=== PATIENT | female | born 1985 | race Caucasian/White ===

== ENCOUNTER 2021-07-11 20:53 | Day surgery (SDC) | payer BC ==
[2021-07-11 21:17] VITALS: BMI 32.5
[2021-07-11 22:06] LABS: Fetal Membranes Rupture No Membranes Rupture (No Rupture)
[2021-07-11] MEDS ORDERED: hydrALAZINE 20 MG/ML VIAL SLOW IVP PRN (23:33)
== END 2021-07-11 23:45 | disposition home or self-care (01) ==
LOC: CSHLD/OP 20:53
PROVIDERS: ATTEND Obstetrics & Gynecology
DX: O47.1 False labor at or after 37 completed weeks of gestation (principal); O99.891 Other specified diseases and conditions complicating pregnancy; N89.8 Other specified noninflammatory disorders of vagina; O36.8130 Decreased fetal movements, third trimester, not applicable or unspecified; O32.1XX0 Maternal care for breech presentation, not applicable or unspecified; Z3A.38 38 weeks gestation of pregnancy
CPT/HCPCS: 76815; 84112; 99284

== ENCOUNTER 2021-07-15 00:10 | Inpatient (IN) | payer BC ==
[2021-07-14 08:01] LABS: SARS-CoV-2 PCR by NAA Not Detected (NotDetected)
[2021-07-15] MEDS ORDERED: Misoprostol 100 MCG TAB ONE (00:34)
[2021-07-15] MEDS ORDERED: Penicillin G Potassium 5 MILL.UNITS VIAL ONE (00:34)
[2021-07-15] MEDS: Misoprostol 100 MCG TAB VAG SCH ×2 (00:42→05:02)
[2021-07-15] MEDS ORDERED: Ibuprofen 800 MG TAB PO PRN (01:01)
[2021-07-15] MEDS ORDERED: Lidocaine 1% (PF) 30 ML VIAL SC PRN (01:01)
[2021-07-15] MEDS ORDERED: Methylergonovine 0.2 MG/ML VIAL IM PRN (01:01)
[2021-07-15] MEDS ORDERED: Misoprostol 200 MCG TAB PR PRN (01:01)
[2021-07-15] MEDS ORDERED: Butorphanol Tartrate 1 MG/ML VIAL SLOW IVP PRN (01:01)
[2021-07-15] MEDS ORDERED: Promethazine HCl 25 MG/ML VIAL IM PRN ×2 (01:01→11:50)
[2021-07-15] MEDS ORDERED: hydrALAZINE 20 MG/ML VIAL SLOW IVP PRN ×2 (01:01→16:31)
[2021-07-15] MEDS ORDERED: Ondansetron PF 4 MG/2 ML Vial IVP PRN ×2 (01:01→11:50)
[2021-07-15] MEDS ORDERED: Acetaminophen 500 MG TAB PO PRN (01:01)
[2021-07-15] MEDS ORDERED: Carboprost 250 MCG/ML AMP IM PRN (01:01)
[2021-07-15] MEDS ORDERED: Lactated Ringer's 1,000 ML IV SCH (01:15)
[2021-07-15] MEDS ORDERED: NS w/ Oxytocin 30 units 500 ML IV SCH (01:15)
[2021-07-15] MEDS ORDERED: Penicillin G Potassium 5 MILL.UNITS in Sodium Chloride 0.9% 100 ML IVPB SCH (01:15)
[2021-07-15 01:33] VITALS: BMI 32.5
[2021-07-15 01:36] LABS: Hemoglobin 10.1 g/dL (12.0-15.5); Mean Corpuscular HGB CONC 31.7 g/dL (32.0-36.0); Mean Corpuscular Hemoglobin 25.8 pg (27.0-33.0); Mean Corpuscular Volume 81.6 fl (81.6-98.3); Mean Platelet Volume 11.2 fl (7.4-10.4); Platelet Count 214 10x3/uL (150-450); RBC Distribution Width 15.3 % (11.5-14.5); Red Blood Cell (RBC) Count 3.91 10x6/uL (3.90-5.03); White Blood Cell (WBC) Count 9.4 10x3/uL (3.5-10.5)
[2021-07-15 02:13] LABS: Hep B Surf Ag Non-Reactive S/CO (NonReactive); Syphilis Antibody Nonreactive (Nonreactive); Syphilis Antibody Index 0.07 S/CO (<1.00 Non-Reactive)
[2021-07-15 02:19] LABS: HBSAg Index 0.18 S/CO (0-0.99)
[2021-07-15] MEDS: Penicillin G 2.5 MILL.units 2.5 MILL.UNITS in Premix Bag 1 BAG IVPB SCH ×3 (03:59→12:27)
[2021-07-15] MEDS ORDERED: Fentanyl 2 mcg/Bup 0.1% Cadd 100 ML ONE (11:45)
[2021-07-15] MEDS ORDERED: Lactated Ringer's 500 ML IV PRN (11:50)
[2021-07-15] MEDS ORDERED: ePHEDrine Sulfate 50 MG/10 ML VIAL SLOW IVP PRN (11:50)
[2021-07-15] MEDS ORDERED: Hydrocerin (Eucerin) Cream 120 gm Jar TOP PRN (11:50)
[2021-07-15] MEDS ORDERED: diphenhydrAMINE 50 MG/ML VIAL IVP PRN (11:50)
[2021-07-15] MEDS ORDERED: Acetaminophen 325 MG TAB PO PRN (11:50)
[2021-07-15] MEDS ORDERED: Naloxone HCl 0.4 mg/ml Vial IVP PRN ×2 (11:50)
[2021-07-15] MEDS ORDERED: Fentanyl 2 mcg/Bupivacaine 0.1% Cassette 100 ML EPIDURAL SCH (12:00)
[2021-07-15] MEDS ORDERED: Communication Order-Pharmacy FS SCH (12:00)
[2021-07-15] MEDS ORDERED: Boostrix 0.5 ML (Tdap) VIAL IM ONE (16:31)
[2021-07-15] MEDS ORDERED: Preparation H Ointment 28 GM TUBE PR PRN (16:31)
[2021-07-15] MEDS ORDERED: traMADol HCl 50 MG TAB PO PRN ×2 (16:31)
[2021-07-15] MEDS ORDERED: diphenhydrAMINE 25 MG CAP PO PRN (16:31)
[2021-07-15] MEDS ORDERED: Benzocaine-Menthol 82.5 ML CAN TOP PRN (16:31)
[2021-07-15] MEDS ORDERED: Zolpidem Tartrate 5 MG TAB PO PRN (16:31)
[2021-07-15] MEDS ORDERED: Lanolin Ointment 7 GM TUBE TOP PRN (16:31)
[2021-07-15] MEDS ORDERED: Milk Of Magnesia 30 ML UDCUP PO PRN (16:31)
[2021-07-15] MEDS ORDERED: Bisacodyl 10 MG SUPP PR PRN (16:31)
[2021-07-15] MEDS: Docusate Calcium (SURFAK) 240 MG CAP PO SCH (20:42)
[2021-07-15] MEDS: Ibuprofen 800 MG TAB PO SCH (20:42)
[2021-07-16] MEDS: Ferrous Sulfate 325 MG TAB PO SCH ×3 (03:04→16:50)
[2021-07-16] MEDS: Ibuprofen 800 MG TAB PO SCH ×2 (05:09→14:27)
[2021-07-16] MEDS: Docusate Calcium (SURFAK) 240 MG CAP PO SCH (08:01)
[2021-07-16] MEDS ORDERED: Prenatal Vitamin 1 TAB PO SCH (09:00)
[2021-07-16 11:26] VITALS: TEMP 98
[2021-07-16 17:54] VITALS: BP 118/61
== END 2021-07-16 18:40 | disposition home or self-care (01) | DRG 807 ==
LOC: CSHLD/OP 00:10 → CSHLD 00:57 → CSHPP 18:39
PROVIDERS: ADMIT Obstetrics & Gynecology; ATTEND Obstetrics & Gynecology
PROC: 10E0XZZ Delivery of Products of Conception, External Approach (ICD-10-PCS; principal; 2021-07-15)
PROC: 10907ZC Drainage of Amniotic Fluid, Therapeutic from Products of Conception, Via Natural or Artificial Opening (ICD-10-PCS; 2021-07-15)
PROC: 0W8NXZZ Division of Female Perineum, External Approach (ICD-10-PCS; 2021-07-15)
PROC: 3E0P7VZ Introduction of Hormone into Female Reproductive, Via Natural or Artificial Opening (ICD-10-PCS; 2021-07-15)
PROC: 3E033VJ Introduction of Other Hormone into Peripheral Vein, Percutaneous Approach (ICD-10-PCS; 2021-07-15)
DX: O99.824 Streptococcus B carrier state complicating childbirth (principal); Z37.0 Single live birth; Z3A.39 39 weeks gestation of pregnancy; Z20.822 Contact with and (suspected) exposure to COVID-19
CPT/HCPCS: 36415; 51702; 85027; 86780; 86850; 86900; 86901; 87340; J2540; J3490; J7120; U0003; U0005